=== PATIENT | female | born 1980 | race Asian ===

== ENCOUNTER 2019-03-26 06:33 | Day surgery (SDC) | payer BC, OTHER ==
[~2019-03-26 06:33] MED LIST: Lidocaine 1%/Sod Bicarbonate in NS 8.4% 1 ML Syringe IDERM PRN; Sodium Chloride 0.9% 10 ML Syringe FLUSH PRN
[2019-03-26] MEDS ORDERED: Lidocaine 1% with EPINEPHrine 1:100,000 20 ML MDV ONE (07:06)
[2019-03-26] MEDS ORDERED: Bupivacaine 0.5% 30 ML SDV ONE (07:06)
[2019-03-26] MEDS ORDERED: Sodium Chloride 0.9% 50 ML SDV ONE (07:07)
[2019-03-26] MEDS: Lactated Ringers 1,000 ML IV SCH ×2 (07:30→10:29)
[2019-03-26] MEDS ORDERED: Dexamethasone 4 MG/ML 5 ML MDV ONE (07:38)
[2019-03-26] MEDS ORDERED: Lactated Ringers 1,000 ML ONE (07:38)
[2019-03-26] MEDS ORDERED: Albuterol 0.083% 2.5 MG/3 ML Neb Soln NEB ONE (07:38)
[2019-03-26] MEDS ORDERED: Ondansetron 4 MG/2 ML SDV ONE (07:38)
[2019-03-26] MEDS ORDERED: Scopolamine 1.5 MG Transdermal Patch TOP ONE (07:38)
[2019-03-26] MEDS ORDERED: Rocuronium 50 MG/5 ML Vial ONE (07:38)
[2019-03-26] MEDS ORDERED: fentaNYL 250 MCG/5 ML SDV ONE (07:39)
[2019-03-26] MEDS ORDERED: Midazolam 1 MG/ML 2 ML SDV ONE ×2 (07:39→08:35)
[2019-03-26] MEDS ORDERED: Propofol 200 MG/20 ML SDV ONE ×4 (07:39→09:33)
[2019-03-26] MEDS ORDERED: Ketamine 500 mg/10 ML MDV ONE (07:39)
[2019-03-26] MEDS ORDERED: Lidocaine 1% 4 ML ONE (07:41)
--- NOTE | 2019-03-26 08:58 | PCM.PREANE ---
Preanesthetic Assessment - Anesthesia/Transfusion/Family Hx Anesthesia History: Prior Anesthesia Without Reaction (CSection) Family History of Anesthesia Reaction: No - Review of Systems General: No Symptoms Pulmonary: No Symptoms (Asthma, cold and exercise induced, used ventolin inhaler one week ago when AC was turned on at work. Otherwise her asthma is well controlled. ) Cardiovascular: No Symptoms Gastrointestinal: No Symptoms Neurological: No Symptoms, Pre-Existing Deficit (Lower Back Pain) Other: Reports: None (Motion Sickness ) - Physical Assessment NPO Status Date: 03/25/19 NPO Status Time: 21:30 O2 Sat by Pulse Oximetry: 100 Respiratory Rate: 16 Vital Signs: Last Vital Signs Temp 36.7 C 03/26/19 07:15 Pulse 78 03/26/19 07:15 Resp 16 03/26/19 07:15 BP 130/94 H 03/26/19 07:15 Pulse Ox 100 03/26/19 07:51 Height: 1.63 m Weight: 65.317 kg ASA Class: 2 Mental Status: Alert & Oriented x3 Airway Class: Mallampati = 1 Dentition: Reports: Normal Dentition (Wear noted to front teeth. Uneven surface. ) Thyro-Mental Finger Breadths: 2 Mouth Opening Finger Breadths: 3 ROM/Head Extension: Full Lungs: Clear to Auscultation, Normal Respiratory Effort Cardiovascular: Regular Rate, Regular Rhythm - Lab Values: Laboratory Last Values WBC 4.71 K/mm3 (3.98-10.04) 03/26/19 07:35 RBC 4.72 M/mm3 (3.98-5.22) 03/26/19 07:35 Hgb 14.9 gm/L (11.2-15.7) 03/26/19 07:35 Hct 44.2 % (34.1-44.9) 03/26/19 07:35 MCV 93.6 fl (79.4-94.8) 03/26/19 07:35 MCH 31.6 pg (25.6-32.2) 03/26/19 07:35 MCHC 33.7 g/dl (32.2-35.5) 03/26/19 07:35 RDW Std Deviation 43.3 fL (36.4-46.3) 03/26/19 07:35 Plt Count 247 K/mm3 (182-369) 03/26/19 07:35 MPV 8.7 fl (9.4-12.3) L 03/26/19 07:35 Neut % (Auto) 61.2 % (34.0-71.1) 03/26/19 07:35 Lymph % (Auto) 26.5 % (19.3-51.7) 03/26/19 07:35 [place] % (Auto) 7.9 % (4.7-12.5) 03/26/19 07:35 Eos % (Auto) 3.8 (0.7-5.8) 03/26/19 07:35 Baso % (Auto) 0.4 % (0.1-1.2) 03/26/19 07:35 Neut # (Auto) 2.88 K/mm3 (1.56-6.13) 03/26/19 07:35 Lymph # (Auto) 1.25 K/mm3 (1.18-3.74) 03/26/19 07:35 [place] # (Auto) 0.37 K/mm3 (0.24-0.36) H 03/26/19 07:35 Eos # (Auto) 0.18 K/mm3 (0.04-0.36) 03/26/19 07:35 Baso # (Auto) 0.02 K/mm3 (0.01-0.08) 03/26/19 07:35 Sodium 136 mEq/L (136-145) 03/26/19 07:35 Potassium 3.4 mEq/L (3.5-5.1) L 03/26/19 07:35 Chloride 101 mEq/L (98-107) 03/26/19 07:35 Carbon Dioxide 25 mEq/L (21-32) 03/26/19 07:35 Anion Gap 13.4 (5-15) 03/26/19 07:35 Urine HCG, Qual Negative (NEGATIVE) 03/26/19 07:10 Blood Type AB POSITIVE 03/26/19 07:35 Gel Antibody Screen Positive 03/26/19 07:35 - Allergies Allergies/Adverse Reactions: Allergies Allergy/AdvReac Type Severity Reaction Status Date / Time shellfish derived Allergy Hives Verified 03/26/19 07:59 dust mites Allergy Hives Uncoded 03/25/19 15:56 - Anesthesia Plan Pre-Op Medication Ordered: Anxiolytic, Other (Albuterol Neb Treatment, Scopalamine Patch) - Acknowledgements Anesthesia Type Planned: General Anesthesia Pt an Appropriate Candidate for the Planned Anesthesia: Yes Alternatives and Risks of Anesthesia Discussed w Pt/Guardian: Yes Pt/Guardian Understands and Agrees with Anesthesia Plan: Yes PreAnesthesia Questionnaire - Past Health History Medical/Surgical History: Denies Medical/Surgical History HEENT History: Reports: None Cardiovascular History: Reports: None Respiratory History: Reports: Asthma Gastrointestinal History: Reports: None Genitourinary History: Reports: None 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 GUARD 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 OB/BYN History: fibroids, menorrhagia Musculoskeletal History: Reports: None Neurological History: Reports: None Psychiatric History: Reports: None Endocrine/Metabolic History: Reports: None Hematologic History: Reports: None Immunologic History: Reports: None Oncologic (Cancer) History: Reports: None Dermatologic History: Reports: None - Past Surgical History Head Surgeries/Procedures: Reports: None HEENT Surgical History: Reports: None Cardiovascular Surgical History: Reports: None Respiratory Surgical History: Reports: None GI Surgical History: Reports: None Female Surgical History: Reports: Section Male Surgical History: Reports: None Endocrine Surgical History: Reports: None Neurological Surgical History: Reports: None Musculoskeletal Surgical History: Reports: None Oncologic Surgical History: Reports: None Dermatological Surgical History: Reports: None - SUBSTANCE USE Smoking Status *Q: Never Smoker Recreational Drug Use History: No - HOME MEDS Home Medications: Home Meds Albuterol [Ventolin HFA] 1 - 2 puff INH Q4H PRN 03/25/19 [History] Ibuprofen 200 mg PO Q4H 03/25/19 [History] diphenhydrAMINE HCl [Benadryl Allergy] 25 mg PO DAILY PRN 03/25/19 [History] - CURRENT (IN HOUSE) MEDS Current Meds: Current Medications Lactated Ringer's (Ringers, Lactated) 1,000 mls @ 125 mls/hr IV ASDIRECTED ECHO Stop: 03/26/19 23:00 Last Admin: 03/26/19 07:30 Dose: 125 mls/hr Lidocaine/Sodium Bicarbonate (Buffered Lidocaine 1% In Ns 8.4%) 0.25 ml IDERM ONETIME PRN PRN Reason: Prior to IV Start Stop: 03/26/19 23:00 Last Admin: 03/26/19 07:30 Dose: 0.25 ml Sodium Chloride (Saline Flush) 10 ml FLUSH ASDIRECTED PRN PRN Reason: Keep Vein Open Stop: 03/26/19 23:00 Discontinued Medications Albuterol (Proventil Neb Soln) 2.5 mg NEB ONETIME ONE Stop: 03/26/19 07:39 Last Admin: 03/26/19 07:50 Dose: 2.5 mg Bupivacaine HCl (Marcaine 0.5%) Confirm Administered Dose 30 ml .ROUTE .STK-MED ONE Stop: 03/26/19 07:07 Dexamethasone (Dexamethasone) Confirm Administered Dose 20 mg .ROUTE .STK-MED ONE Stop: 03/26/19 07:39 Fentanyl (Sublimaze) Confirm Administered Dose 250 mcg .ROUTE .STK-MED ONE Stop: 03/26/19 07:40 Lactated Ringer's (Ringers, Lactated) Confirm Administered Dose 1,000 mls @ as directed .ROUTE .STK-MED ONE Stop: 03/26/19 07:39 Lidocaine HCl (Xylocaine-Mpf 1%) Confirm Administered Dose 4 mls @ as directed .ROUTE .STK-MED ONE Stop: 03/26/19 07:42 Ketamine HCl (Ketalar) Confirm Administered Dose 500 mg .ROUTE .STK-MED ONE Stop: 03/26/19 07:40 Lidocaine/Epinephrine (Xylocaine 1% With Epinephrine 1:100,000) Confirm Administered Dose 20 ml .ROUTE .STK-MED ONE Stop: 03/26/19 07:07 Midazolam HCl (Versed 1 Mg/Ml) Confirm Administered Dose 2 mg .ROUTE .STK-MED ONE Stop: 03/26/19 07:40 Midazolam HCl (Versed 1 Mg/Ml) Confirm Administered Dose 2 mg .ROUTE .STK-MED ONE Stop: 03/26/19 08:36 Ondansetron HCl (Zofran) Confirm Administered Dose 4 mg .ROUTE .STK-MED ONE Stop: 03/26/19 07:39 Propofol (Diprivan 20 Ml) Confirm Administered Dose 600 mg .ROUTE .STK-MED ONE Stop: 03/26/19 07:40 Propofol (Diprivan 20 Ml) Confirm Administered Dose 600 mg .ROUTE .STK-MED ONE Stop: 03/26/19 07:41 Propofol (Diprivan 20 Ml) Confirm Administered Dose 400 mg .ROUTE .STK-MED ONE Stop: 03/26/19 08:40 Rocuronium [place] (Zemuron) Confirm Administered Dose 50 mg .ROUTE .STK-MED ONE Stop: 03/26/19 07:39 Scopolamine (Transderm-Scop) 1.5 mg TOP ONETIME ONE Stop: 03/26/19 07:39 Last Admin: 03/26/19 07:48 Dose: 1.5 mg Sodium Chloride (Normal Saline) Confirm Administered Dose 50 ml .ROUTE .STK-MED ONE Stop: 03/26/19 07:08
[2019-03-26] MEDS ORDERED: Albuterol 0.083% 2.5 MG/3 ML Neb Soln NEB PRN (08:59)
[2019-03-26] MEDS ORDERED: diphenhydrAMINE 50 MG/ML SDV IVPUSH PRN (08:59)
[2019-03-26] MEDS ORDERED: HYDROmorphone 0.5 MG/0.5 ML Syringe IVPUSH PRN (08:59)
[2019-03-26] MEDS ORDERED: Haloperidol Lactate 5 MG/ML SDV IVPUSH ONE (08:59)
[2019-03-26] MEDS ORDERED: fentaNYL 100 MCG/2 ML SDV IVPUSH PRN (08:59)
[2019-03-26] MEDS ORDERED: HYDROmorphone 0.5 MG/0.5 ML Syringe ONE (09:45)
[2019-03-26] MEDS ORDERED: Neostigmine Methylsulfate 1 MG/ML 5 ML Syringe ONE (09:56)
--- NOTE | 2019-03-26 10:21 | PCM.POSTAN ---
POST ANESTHESIA ASSESSMENT - MENTAL STATUS Mental Status: Alert, Oriented - VITAL SIGNS Pulse Rate: 94 SaO2: 100 Resp Rate: 12 Blood Pressure: 103/60 Temperature: 36.3 C - RESPIRATORY Respiratory Status: Respiratory Rate WNL, Airway Patent, O2 Saturation Stable, Supplemental Oxygen - CARDIOVASCULAR CV Status: Pulse Rate WNL, Blood Pressure Stable - GASTROINTESTINAL GI Status: No Symptoms - POST OP HYDRATION Hydration Status: Adequate & Stable
[2019-03-26] MEDS ORDERED: Ketorolac 30 MG/ML SDV IVPUSH ONE (10:22)
--- NOTE | 2019-03-26 10:24 | PCM.OPNOTE ---
- General Post-Op/Procedure Note Date of Surgery/Procedure: 03/26/19 Operative Procedure(s): laparoscopic assisted vaginal hysterectomy Findings: anterior fibroid, otherwise normal pelvic anatomy Pre Op Diagnosis: pelvic pressure, fibroids Post-Op Diagnosis: Same Anesthesia Technique: General ET Tube Primary Surgeon: Tamiko Balderrama Jig And Fixture Builder: Daisy Wang Fluid Replacement, Intraop: 2,000 Output, Urine Amount: 600 EBL in mLs: 75 Complications: None Condition: Good Free Text/Narrative:: After obtaining appropriate consent she was taken the the operating room where general anesthetic was administered. She was prepped and draped in the usual sterile fashion in high lithotomy using roesnda stirrups. A weighted speculum was placed in the posterior vagina and a vanessa utilized anteriorly to visualize the cervix which was grasped with a single toothed tenaculum and placed on traction. A uterine manipulator was then advanced into the uterus. Attention was re-directed to the abdomen and a 5 mm skin incision was made in the patient's umbilical fold. A blunt tipped trocar was advanced under direct visualization using the laparoscope. The abdomen was insufflated and no evidence of injury upon entry was noted. General survey of the abdomen reveal [ normal] uterus and ovaries. A 5 mm incision was then made on each the right and left side and a blunt tipped trocar was advanced under direct visualization. The left ovary was elevated and the left fallopian tube removed along the mesosalpinx. The dissection was continued to the round ligament. The round ligament was then cauterized and transected. The bladder flap was created starting on the left. Bladder was dissected off the cervix. The uterine artery and broad ligament on the left was serial cauterized and transected to the level of the cervix. The right round ligament, broad ligament and uterine artery were cauterized and transected in a similar manner. No bleeding was noted at any of the pedicles. The pelvis was irrigated and suctioned. All instruments were removed and the gas was released. Attention was redirected to the vagina. Area of intended colpotomy injected with 25% marcaine with epinepherine. Incision made with scapel. The posterior cul-de-sac was entered sharply with the Medrano scissors. The long weighted speculum was placed. The uterosacral ligaments were identified bilaterally, clamped, transected with ligasure. A second clamp was placed onto the cardinal ligament bilaterally, this was transected and ligasure ligated. Attention was turned anteriorly. Blunt and sharp dissection was used to mobilize the bladder off the cervix. The anterior cul-de-sac was [default value ] entered sharply. The cardinal ligament was serially clamped, transected and suture ligated. The Kristine retractor was advanced. The cardinal ligament was then clamped to met the dissection from above including the uterine vessels bilaterally. The specimen was delivered and handed off. Inspection of the pedicles noted hemostasis. The posterior cuff was run with 0- vicryl in a running fashion. The cuff was closed using 0 vicryl figure of eights in a horizontal fashion. The retractors were removed and the abdomen was reinsufflated. All pedicles were hemostatic. All instruments were removed from the abdomen and the incisions were closed with 4-0 vicryl and covered with dermabond. The cystoscope was obtained. Clear urine was noted. A survey of the bladder revealed no injury, bilateral ureteral jets and no stitches present. The bladder was drained. She was repositioned supine, draping removed and then taken to PACU in stable condition. Needle, sponge and instrument counts were correct X 3.
[2019-03-26] MEDS ORDERED: Acetaminophen/oxyCODONE 325-5 MG Tab PO SCH (13:15)
[2019-03-26 15:00] VITALS: BP 112/72
== END 2019-03-26 14:50 | disposition home or self-care (01) ==
LOC: JD.SDS 06:33
PROVIDERS: ATTEND Obstetrics & Gynecology
DX: D25.2 Subserosal leiomyoma of uterus (principal); N73.6 Female pelvic peritoneal adhesions (postinfective); J45.909 Unspecified asthma, uncomplicated; T75.3XXA Motion sickness, initial encounter; Z91.013 Allergy to seafood; Z91.048 Other nonmedicinal substance allergy status; Z79.1 Long term (current) use of non-steroidal anti-inflammatories (NSAID); Z79.3 Long term (current) use of hormonal contraceptives
CPT/HCPCS: 36415; 58552; 80051; 81025; 85025; 86850; 86870; 86900; 86901; 87086; 87088; 94640; A9270; J1100; J1170; J1885; J2001; J2250; J2405; J2704; J2710; J3010; J3490; J7120; 00944

== ENCOUNTER 2020-08-25 12:27 | Emergency (ER) | payer BC, OTHER ==
--- NOTE | 2020-08-25 13:19 | EDM.PDOC ---
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 She did suffer contussion and abrasion injury to R face. She has been dieting the last few days, basically just drinking tea. No hx of Htn, CAD or other known health problems. Mild localized R facial discomfort. No generalized Mccarthy. There has been no nausea or vomiting. No other pain or injury. Right Face/Facial Pain Score (Numeric/FACES): 3 - Related Data Allergies Allergy/AdvReac Type Severity Reaction Status Date / Time shellfish derived Allergy Hives Verified 03/26/19 07:59 dust mites Allergy Hives Uncoded 03/25/19 15:56 Home Meds: Home Meds Albuterol [Ventolin HFA] 1 - 2 puff INH Q4H PRN 03/25/19 [History] diphenhydrAMINE HCL [Benadryl Allergy] 25 mg PO DAILY PRN 03/25/19 [History] Past Medical History - Past Health History Medical/Surgical History: Denies Medical/Surgical History HEENT History: Reports: None Cardiovascular History: Reports: None Respiratory History: Reports: Asthma Gastrointestinal History: Reports: None Genitourinary History: Reports: None PARASITOLOGIST 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 History: fibroids, menorrhagia Musculoskeletal History: Reports: None Neurological History: Reports: None Psychiatric History: Reports: None Endocrine/Metabolic History: Reports: None Hematologic History: Reports: None Immunologic History: Reports: None Oncologic (Cancer) History: Reports: None Dermatologic History: Reports: None - Past Surgical History Head Surgeries/Procedures: Reports: None HEENT Surgical History: Reports: None Cardiovascular Surgical History: Reports: None Respiratory Surgical History: Reports: None GI Surgical History: Reports: None Female Surgical History: Reports: Section Endocrine Surgical History: Reports: None Neurological Surgical History: Reports: None Musculoskeletal Surgical History: Reports: None Oncologic Surgical History: Reports: None Dermatological Surgical History: Reports: None Social & Family History - Tobacco Use Tobacco Use Status *Q: Never Tobacco User Second Hand Smoke Exposure: No - Caffeine Use Caffeine Use: Reports: Tea - Recreational Drug Use Recreational Drug Use: No ED ROS GENERAL - Review of Systems Review Of Systems: See Below Constitutional: Denies: Fever, Chills HEENT: Reports: Other (R facial contussion) Respiratory: Denies: Shortness of Breath Cardiovascular: Denies: Chest Pain GI/Abdominal: Denies: Abdominal Pain, Nausea, Vomiting Musculoskeletal: Denies: Neck Pain, Shoulder Pain, Arm Pain, Back Pain, Leg Pain Skin: Reports: Other (abrasion R face) Neurological: Reports: Dizziness (gone) ED EXAM, DIZZINESS - Physical Exam Exam: See Below General Appearance: Alert, No Apparent Distress Ears: Normal External Exam Throat/Mouth: Normal Inspection Head Exam: Other (there is mild swelling and tenderness R face, nose nontender. ) Neck: Supple, Non-Tender Respiratory/Chest: No Respiratory Distress Cardiovascular: Regular Rate, Rhythm Neurological: Alert, Normal Mood/Affect, No Motor/Sensory Deficits Back Exam: No: Paraspinal Tenderness, Vertebral Tenderness Extremities: Normal Inspection, Normal Range of Motion Skin Exam: Warm, Dry, Normal Color Course - Vital Signs Last Recorded V/S: Last Vital Signs Temp 97.0 F 08/25/20 14:05 Pulse 88 08/25/20 14:05 Resp 14 08/25/20 14:05 BP 133/94 H 08/25/20 14:05 Pulse Ox 97 08/25/20 14:05 Orthostatic Blood Pressure [ 117/81 Standing] Orthostatic Blood Pressure [ 119/81 Supine] - Orders/Labs/Meds Labs: Laboratory Tests 08/25/20 Range/Units 12:36 POC Glucose 74 (70-105) mg/dL - Re-Assessments/Exams Free Text/Narrative Re-Assessment/Exam: 08/26/20 17:26 Pt is doing well, imaging not clinically indicated. Pt is in agreement with that. Departure - Departure Time of Disposition: 13:15 Disposition: Home, Self-Care 01 Condition: Fair Clinical Impression: Syncope, Hypoglycemia - Discharge Information Instructions: Syncope, [id number], Hypoglycemia, [id number] Referrals: PCP,None [Primary Care Provider] - Forms: ED Department Discharge, ED Return to Work/School Form Additional Instructions: Rest, ice packs and elevation for swelling. Tylenol as needed for pain. Try return to eating regular meals and snacks. Low calorie diet would be OK if that is what you want to do. Return to ED as needed if symptoms worsening in any way. Sepsis Event Note (ED) - Evaluation Sepsis Screening Result: No Definite Risk
[2020-08-25 14:22] VITALS: BP 133/94; PULSE 88
== END 2020-08-25 14:10 | disposition home or self-care (01) ==
LOC: JD.ED 12:27
DX: E16.2 Hypoglycemia, unspecified (principal); J45.909 Unspecified asthma, uncomplicated; Z91.013 Allergy to seafood; Z91.048 Other nonmedicinal substance allergy status
CPT/HCPCS: 82962; 99282; 99284

== ENCOUNTER 2023-04-16 19:36 | Inpatient (IN) | payer BC ==
[2023-04-16 21:11] LABS: EOSINOPHILS ABSOLUTE AUTO 0.01 K/mm3 (0.04-0.36); EOSINOPHILS PERCENT AUTO 0.1 (0.7-5.8); HEMATOCRIT 34.3 % (34.1-44.9); HEMOGLOBIN 11.7 gm/dl (11.2-15.7); IMMATURE GRAN ABSOLUTE AUTO 0.01 K/mm3 (0.00-0.10); IMMATURE GRAN PERCENT AUTO 0.1 % (<=1.0); LYMPHOCYTES ABSOLUTE AUTO 0.36 K/mm3 (1.18-3.74); MEAN CORPUSCULAR HEMOGLOBIN 35.2 pg (25.6-32.2); MEAN CORPUSCULAR HGB CONC 34.1 g/dl (32.2-35.5); MEAN CORPUSCULAR VOLUME 103.3 fl (79.4-94.8); MEAN PLATELET VOLUME 10.2 fl (9.4-12.3); MONOCYTES ABSOLUTE AUTO 0.49 K/mm3 (0.24-0.36); MONOCYTES PERCENT AUTO 6.8 % (4.7-12.5); NEUTROPHILS ABSOLUTE AUTO 6.36 K/mm3 (1.56-6.13); PLATELET COUNT,PLT 46 K/mm3 (182-369); RED BLOOD CELL COUNT 3.32 M/mm3 (3.98-5.22); WHITE BLOOD CELL COUNT,WBC 7.23 K/mm3 (3.98-10.04)
[2023-04-16 21:32] LABS: INR 1.47; PROTHROMBIN TIME 15.3 SECONDS (9.7-12.0)
[2023-04-16 21:34] LABS: PTT,PARTIAL THROMBOPLSTIN TIME 28.2 SECONDS (21.7-31.4)
[2023-04-16 21:47] LABS: SLIDE REVIEW ABNORMAL SMEAR
[2023-04-16 21:49] LABS: A/G RATIO 0.5 (1-2); ALBUMIN 2.6 g/dl (3.4-5.0); ANION GAP 11.5 (5-15); BILIRUBIN TOTAL 12.9 mg/dL (0.2-1.0); CALCIUM 8.9 mg/dL (8.5-10.1); EST CRCL DRUG DOSING (CG) 154.22 mL/min; MAGNESIUM 1.2 mg/dL (1.8-2.4)
[2023-04-16] MEDS ORDERED: Sodium Chloride 0.9% 1,000 ML IV ONE (22:08)
[2023-04-16] MEDS ORDERED: Potassium Chloride 20 MEQ Tab.ER PO ONE (22:11)
[2023-04-16 22:14] LABS: CREATININE 0.4 mg/dL (0.55-1.02); POTASSIUM,K 2.5 mEq/L (3.5-5.1)
[2023-04-16] MEDS ORDERED: Magnesium Sulfate/Water 2 GM in Premix Bag 1 BAG IV ONE (22:14)
[2023-04-16 22:17] LABS: APPEARANCE,URINE CLOUDY (Clear); BILIRUBIN,URINE 3+ (Negative); COLOR,URINE DARK YELLOW (Yellow); GLUCOSE,URINE NEGATIVE (Negative); KETONES,URINE NEGATIVE (Negative); LEUKOCYTE ESTERASE,URINE 2+ (Negative); NITRITE,URINE POSITIVE (Negative); OCCULT BLOOD,URINE 1+ (Negative); PH,URINE 7.5 (5.0-8.0); PROTEIN,URINE TRACE (Negative)
[2023-04-16 22:31] LABS: BACTERIA,URINE MODERATE /hpf (FEW); RBC,URINE 0-5 /hpf (0-5); SQUAMOUS EPITHELIAL CELLS,UR 0-5 /hpf (0-5); WBC,URINE 0-5 /hpf (0-5)
[2023-04-16 22:32] LABS: MUCUS,URINE RARE /hpf (FEW)
[2023-04-16] MEDS ORDERED: diphenhydrAMINE 50 MG/ML SDV IVPUSH ONE (22:34)
[2023-04-16] MEDS: Potassium Chloride 10 MEQ in Premix Bag 1 BAG IV SCH (23:03)
[2023-04-17] MEDS ORDERED: Iopamidol 612 MG/ML 100 ML Bottle IVPUSH ONE (00:08)
[2023-04-17] MEDS: Potassium Chloride 10 MEQ in Premix Bag 1 BAG IV SCH ×5 (00:35→05:31)
[2023-04-17] MEDS ORDERED: Lactulose Soln 10 GM/15 ML 30 ML UD Cup PO ONE (09:21)
[2023-04-17] MEDS ORDERED: cefTRIAXone 2 GM in Sodium Chloride 0.9% 100 ML IV ONE (09:21)
[2023-04-17] MEDS ORDERED: Docusate Sodium 100 MG Cap PO PRN (15:42)
[2023-04-17] MEDS ORDERED: Ondansetron 4 MG/2 ML SDV IV PRN (15:42)
[2023-04-17] MEDS ORDERED: Acetaminophen 325 MG Tab PO PRN (15:42)
[2023-04-17] MEDS ORDERED: oxyCODONE 5 MG Tab PO PRN (15:42)
[2023-04-17] MEDS ORDERED: Albuterol 6.7 GM Inhaler INH PRN (15:50)
[2023-04-17 15:55] LABS: ANION GAP 13.4 (5-15); CALCIUM 8.2 mg/dL (8.5-10.1); EST CRCL DRUG DOSING (CG) 142.65 mL/min; MAGNESIUM 1.7 mg/dL (1.8-2.4)
[2023-04-17 15:58] LABS: CREATININE 0.4 mg/dL (0.55-1.02); POTASSIUM,K 3.4 mEq/L (3.5-5.1)
[2023-04-17] MEDS ORDERED: LORazepam 2 MG/ML SDV IV SCH (16:00)
[2023-04-17 16:29] LABS: AMPHETAMINES SCREEN, URINE NEGATIVE (CUTOFF=500); BARBITURATE SCREEN,URINE NEGATIVE (CUTOFF=200); BENZODIAZEPINES SCREEN,URINE NEGATIVE (CUTOFF=150); BUPRENORPHINE SCREEN,URINE NEGATIVE (CUTOFF=10); METHADONE SCREEN, URINE NEGATIVE (CUTOFF=200); METHAMPHETAMINES SCREEN, URINE NEGATIVE (CUTOFF=500); OXYCODONE SCREEN,URINE NEGATIVE (CUT0FF=100); PROPOXYPHENE SCREEN,URINE NEGATIVE (CUTOFF=300); THC SCREEN,URINE 20 NG/ML NEGATIVE (CUTOFF=50)
[2023-04-17] MEDS: Folic Acid 1 MG Tab PO SCH (16:56)
[2023-04-17] MEDS: Famotidine 20 MG Tab PO SCH ×2 (16:57→20:50)
[2023-04-17] MEDS: Thiamine 100 MG Tab PO SCH (16:57)
[2023-04-17] MEDS ORDERED: Potassium Chloride 20 MEQ Tab.ER PO ONE (17:54)
[2023-04-17] MEDS ORDERED: Magnesium Sulfate/Water 2 GM in Premix Bag 1 BAG IV ONE (17:54)
[2023-04-17] MEDS ORDERED: LORazepam 2 MG/ML SDV IVPUSH PRN (17:56)
[2023-04-17] MEDS ORDERED: Sodium Chloride 0.9% 1,000 ML IV SCH (18:00)
[2023-04-17] MEDS: Lactulose Soln 10 GM/15 ML 30 ML UD Cup PO SCH (20:50)
[2023-04-17] MEDS ORDERED: Lactulose Soln 10 GM/15 ML 30 ML UD Cup PO SCH (21:00)
[2023-04-17] MEDS ORDERED: traZODone 50 MG Tab PO PRN (23:31)
[2023-04-18 06:09] LABS: BASOPHILS ABSOLUTE AUTO 0.01 K/mm3 (0.01-0.08); BASOPHILS PERCENT AUTO 0.1 % (0.1-1.2); EOSINOPHILS ABSOLUTE AUTO 0.07 K/mm3 (0.04-0.36); HEMATOCRIT 35.7 % (34.1-44.9); HEMOGLOBIN 11.7 gm/dl (11.2-15.7); IMMATURE GRAN ABSOLUTE AUTO 0.02 K/mm3 (0.00-0.10); IMMATURE GRAN PERCENT AUTO 0.3 % (<=1.0); LYMPHOCYTES ABSOLUTE AUTO 0.94 K/mm3 (1.18-3.74); MEAN CORPUSCULAR HEMOGLOBIN 34.4 pg (25.6-32.2); MEAN CORPUSCULAR HGB CONC 32.8 g/dl (32.2-35.5); MEAN PLATELET VOLUME 10.3 fl (9.4-12.3); MONOCYTES ABSOLUTE AUTO 0.95 K/mm3 (0.24-0.36); MONOCYTES PERCENT AUTO 13.1 % (4.7-12.5); NEUTROPHILS ABSOLUTE AUTO 5.24 K/mm3 (1.56-6.13); NEUTROPHILS PERCENT AUTO 72.5 % (34.0-71.1); PLATELET COUNT,PLT 78 K/mm3 (182-369); WHITE BLOOD CELL COUNT,WBC 7.23 K/mm3 (3.98-10.04)
[2023-04-18 06:21] LABS: HEPATITIS C AB NEGATIVE (NEGATIVE)
[2023-04-18 06:54] LABS: A/G RATIO 0.5 (1-2); ALBUMIN 2.5 g/dl (3.4-5.0); ANION GAP 11.8 (5-15); BILIRUBIN DIRECT 11.6 mg/dl (0.0-0.2); BILIRUBIN TOTAL 13.7 mg/dL (0.2-1.0); BUN/CREATININE RATIO 4.3 (14-18); CALCIUM 8.5 mg/dL (8.5-10.1); CREATININE 0.7 mg/dL (0.55-1.02); EST CRCL DRUG DOSING (CG) 81.52 mL/min; MAGNESIUM 2.1 mg/dL (1.8-2.4); PHOSPHORUS 1.8 mg/dL (2.6-4.7); PROTEIN TOTAL,TP 7.5 g/dl (6.4-8.2)
[2023-04-18 07:03] LABS: POTASSIUM,K 3.8 mEq/L (3.5-5.1)
[2023-04-18 07:27] LABS: SLIDE REVIEW ABNORMAL SMEAR
[2023-04-18] MEDS ORDERED: Potassium Phosphates 30 MMOLE in Sodium Chloride 0.9% 500 ML IV ONE (09:30)
[2023-04-18] MEDS ORDERED: Sodium Chloride 0.9% 1,000 ML IV SCH (10:00)
[2023-04-18] MEDS: cefTRIAXone 2 GM in Sodium Chloride 0.9% 100 ML IV SCH (10:37)
[2023-04-18] MEDS: Thiamine 100 MG Tab PO SCH (10:56)
[2023-04-18] MEDS: Lactulose Soln 10 GM/15 ML 30 ML UD Cup PO SCH ×3 (10:56→20:22)
[2023-04-18] MEDS: Folic Acid 1 MG Tab PO SCH (10:56)
[2023-04-18] MEDS: Famotidine 20 MG Tab PO SCH ×2 (10:56→20:22)
[2023-04-19 05:57] LABS: A/G RATIO 0.5 (1-2); ALBUMIN 2.4 g/dl (3.4-5.0); ANION GAP 12.1 (5-15); BUN/CREATININE RATIO 3.3 (14-18); CALCIUM 8.4 mg/dL (8.5-10.1); EST CRCL DRUG DOSING (CG) 95.69 mL/min; MAGNESIUM 1.7 mg/dL (1.8-2.4)
[2023-04-19 05:59] LABS: CREATININE 0.6 mg/dL (0.55-1.02); POTASSIUM,K 3.1 mEq/L (3.5-5.1)
[2023-04-19 06:09] LABS: BASOPHILS ABSOLUTE AUTO 0.02 K/mm3 (0.01-0.08); BASOPHILS PERCENT AUTO 0.3 % (0.1-1.2); EOSINOPHILS ABSOLUTE AUTO 0.09 K/mm3 (0.04-0.36); EOSINOPHILS PERCENT AUTO 1.3 (0.7-5.8); HEMATOCRIT 32.2 % (34.1-44.9); HEMOGLOBIN 10.6 gm/dl (11.2-15.7); IMMATURE GRAN ABSOLUTE AUTO 0.01 K/mm3 (0.00-0.10); IMMATURE GRAN PERCENT AUTO 0.1 % (<=1.0); LYMPHOCYTES ABSOLUTE AUTO 1.13 K/mm3 (1.18-3.74); LYMPHOCYTES PERCENT AUTO 16.1 % (19.3-51.7); MEAN CORPUSCULAR HEMOGLOBIN 34.9 pg (25.6-32.2); MEAN CORPUSCULAR HGB CONC 32.9 g/dl (32.2-35.5); MEAN CORPUSCULAR VOLUME 105.9 fl (79.4-94.8); MEAN PLATELET VOLUME 9.9 fl (9.4-12.3); MONOCYTES ABSOLUTE AUTO 1.03 K/mm3 (0.24-0.36); MONOCYTES PERCENT AUTO 14.7 % (4.7-12.5); NEUTROPHILS ABSOLUTE AUTO 4.72 K/mm3 (1.56-6.13); NEUTROPHILS PERCENT AUTO 67.5 % (34.0-71.1); PLATELET COUNT,PLT 83 K/mm3 (182-369); RED BLOOD CELL COUNT 3.04 M/mm3 (3.98-5.22)
[2023-04-19 06:35] LABS: INR 1.24; PROTHROMBIN TIME 13.1 SECONDS (9.7-12.0)
[2023-04-19] MEDS ORDERED: Potassium Chloride 20 MEQ Tab.ER PO ONE (07:48)
[2023-04-19] MEDS ORDERED: Magnesium Sulfate/Water 2 GM in Premix Bag 1 BAG IV ONE (07:48)
[2023-04-19] MEDS ORDERED: Lactated Ringers 1,000 ML IV SCH (08:00)
[2023-04-19 08:36] LABS: SLIDE REVIEW ABNORMAL SMEAR
[2023-04-19] MEDS ORDERED: cefTRIAXone 2 GM Vial ONE (08:51)
[2023-04-19] MEDS: cefTRIAXone 2 GM in Sodium Chloride 0.9% 100 ML IV SCH (09:37)
[2023-04-19] MEDS: Famotidine 20 MG Tab PO SCH ×2 (09:39→22:07)
[2023-04-19] MEDS: Thiamine 100 MG Tab PO SCH (09:39)
[2023-04-19] MEDS: Folic Acid 1 MG Tab PO SCH (09:40)
[2023-04-19] MEDS: Lactulose Soln 10 GM/15 ML 30 ML UD Cup PO SCH ×4 (09:40→22:07)
[2023-04-19] MEDS: Famotidine 20 MG Tab PO ONE (18:55)
[2023-04-19] MEDS ORDERED: traZODone 50 MG Tab PO PRN (20:00)
[2023-04-20 00:09] VITALS: BP 107/64; PULSE 100
[2023-04-20] MEDS ORDERED: Folic Acid 1 MG Tab PO ONE (04:30)
[2023-04-20] MEDS ORDERED: Thiamine 100 MG Tab PO ONE (04:30)
[2023-04-20] MEDS ORDERED: Cefdinir 300 MG Cap PO ONE (04:30)
[2023-04-20] MEDS ORDERED: Potassium Chloride 20 MEQ Tab.ER PO ONE (04:30)
[2023-04-20] MEDS ORDERED: Magnesium Oxide 400 MG Tab PO ONE (04:30)
[2023-04-20] MEDS ORDERED: LORazepam 1 MG Tab PO ONE ×2 (05:00)
[2023-04-20] MEDS: Famotidine 20 MG Tab PO ONE (05:22)
[2023-04-20 09:47] LABS: HBSAG SCREEN Negative (Negative); HCV AB Non Reactive (Non Reactive); HEP A AB, IGM Negative (Negative); HEP B CORE AB, IGM Negative (Negative)
== END 2023-04-20 05:33 | disposition home or self-care (01) | DRG 280 ==
LOC: JD.ED 19:36 → JD.MS 04-17 13:29 → OBSVTOIN 04-17 15:53 → JD.MS 04-17 19:20
PROVIDERS: ADMIT Hospitalist; ATTEND Hospitalist
DX: K70.30 Alcoholic cirrhosis of liver without ascites (principal); K76.82 Hepatic encephalopathy; N30.00 Acute cystitis without hematuria; R56.9 Unspecified convulsions; E86.0 Dehydration; E83.42 Hypomagnesemia; E80.6 Other disorders of bilirubin metabolism; D69.6 Thrombocytopenia, unspecified; J45.20 Mild intermittent asthma, uncomplicated; F10.939 Alcohol use, unspecified with withdrawal, unspecified; E72.20 Disorder of urea cycle metabolism, unspecified; E87.6 Hypokalemia; E83.39 Other disorders of phosphorus metabolism; H54.7 Unspecified visual loss; R74.01 Elevation of levels of liver transaminase levels; B96.20 Unspecified Escherichia coli [E. coli] as the cause of diseases classified elsewhere; Z90.710 Acquired absence of both cervix and uterus; Z91.013 Allergy to seafood; Z88.8 Allergy status to other drugs, medicaments and biological substances; Z79.899 Other long term (current) drug therapy; Z85.3 Personal history of malignant neoplasm of breast
CPT/HCPCS: 36415; 70450; 70450-26; 71045; 71045-26; 74177; 74177-26; 74181; 74181-26; 76705; 76705-26; 80048; 80053; 80074; 80143; 80306; 80307; 81001; 82140; 82248; 83605; 83735; 84100; 84484; 85025; 85610; 85730; 86803; 87086; 87088; 87186; 93005; 93010; 96361; 96365; 96366; 96367; 96375; 99284; 99285-25; A9270-GY; G0378; J0696; J1200; J3475; J3480; J3490; J7030; J7040; Q9967